=== PATIENT | female | born 1970 | race Caucasian/White ===

== ENCOUNTER 2017-01-08 12:03 | Observation (INO) | payer BC ==
[~2017-01-08] VITALS: Ht 157.5 cm; Wt 79.0 kg
[2017-01-08 12:08] VITALS: BP 121/74; PULSE 87; RESP 14; TEMP 98.1; O2SAT 100
--- NOTE | 2017-01-08 12:23 | PD ---
HPI Chief Complaint: Cardiac Complaint Time Seen by Provider: 12:14 Travel History International Travel<30 days: No Contact w/Intl Traveler<30days: No Traveled to known affect area: No History of Present Illness HPI The patient was seen and examined in the presence of the nurse. This patient complains of chest pain. 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 She developed a sternal pressure. Feels like a squeezing. Feels better at this time. No obvious alleviating factors. She did take an aspirin this morning. Symptoms severity was moderate. Duration 1 hour. No specific injury. Patient reports that she had a heart catheterization about 4 years ago at a different city but she doesn't know the results or when exactly it was done. PFSH Past Medical History Anxiety: Yes Cardiovascular Problems: Yes COPD: Yes Coronary Artery Disease: Yes GERD: Yes ?: Not Past Surgical History Genitourinary Surgery: Yes (GALLBLADDER REMOVED) Social History Alcohol Use: No Tobacco Use: Yes (/2 PPD) Substance Use: No Allergies-Medications (Allergen,Severity, Reaction): Coded Allergies: Penicillin (Verified Allergy, Unknown, 01/08/17) Reported Meds & Prescriptions Reported Meds & Active Scripts Active Reported Simvastatin 20 Mg Tab 20 Mg PO DAILY Nicoderm CQ Patch (Nicotine) 21 Mg/24 Hr Patch 21 Mg T-DERMAL DAILY Pantoprazole (Pantoprazole Sodium) 20 Mg Tab 20 Mg PO DAILY Aspirin 81 Mg Chew 81 Mg CHEW DAILY Lorazepam 0.5 Mg Tab 0.5 Mg PO Q8H PRN Review of Systems General / Constitutional: No: Fever Eyes: No: Visual changes HENT: No: Headaches Cardiovascular: Positive: Chest Pain or Discomfort Respiratory: No: Shortness of Breath Gastrointestinal: No: Abdominal Pain Genitourinary: No: Dysuria Musculoskeletal: No: Pain Skin: No Rash Neurologic: No: Weakness Psychiatric: No: Depression Endocrine: No: Polydipsia Hematologic/Lymphatic: No: Easy Bruising Physical Exam Narrative GENERAL: Well-nourished, well-developed patient in no apparent distress. SKIN: Focused skin assessment reveals no rash and nodules. Skin is Warm and dry. HEAD: Atraumatic. Normocephalic. EYES: Pupils equal and round. No scleral icterus. No injection or drainage. ENT: No nasal bleeding or discharge. Mucous membranes pink and moist. NECK: Trachea midline. No JVD. CARDIOVASCULAR: Regular rate and rhythm. No murmur appreciated. RESPIRATORY: No accessory muscle use. Clear to auscultation. Breath sounds equal bilaterally. GASTROINTESTINAL: Abdomen soft, non-tender, nondistended. Hepatic and splenic margins not palpable. MUSCULOSKELETAL: No obvious deformities. No clubbing. No cyanosis. No edema. NEUROLOGICAL: Awake and alert. No obvious cranial nerve deficits. Motor grossly within normal limits. Normal speech. PSYCHIATRIC: Appropriate mood and affect; insight and judgment normal. Data Data Last Documented VS Vital Signs Date Time Temp Pulse Resp B/P Pulse Ox O2 Delivery O2 Flow Rate FiO2 01/08/17 12:24 95 Room Air 01/08/17 12:08 98.1 87 14 121/74 Orders Electrocardiogram (01/08/17 ) Electrocardiogram (01/08/17 12:20) Basic Metabolic Panel (Bmp) (01/08/17 12:20) Ckmb (Isoenzyme) Profile (01/08/17 12:20) Complete Blood Count With Diff (01/08/17 12:20) Prothrombin Time / Inr (Pt) (01/08/17 12:20) Act Partial Throm Time (Ptt) (01/08/17 12:20) Troponin I (01/08/17 12:20) Chest, Single Ap (01/08/17 12:20) Ecg Monitoring (01/08/17 12:20) Iv Access Insert/Monitor (01/08/17 12:20) Oximetry (01/08/17 12:20) Sodium Chloride 0.9% Flush (Ns Flush) (01/08/17 12:30) Labs Laboratory Tests Test 01/08/17 12:25 White Blood Count 12.9 TH/MM3 Red Blood Count 4.76 MIL/MM3 Hemoglobin 14.6 GM/DL Hematocrit 42.6 % Mean Corpuscular Volume 89.5 FL Mean Corpuscular Hemoglobin 30.7 PG Mean Corpuscular Hemoglobin 34.3 % Concent Red Cell Distribution Width 14.8 % Platelet Count 258 TH/MM3 Mean Platelet Volume 8.3 FL Neutrophils (%) (Auto) 72.9 % Lymphocytes (%) (Auto) 18.9 % Monocytes (%) (Auto) 7.1 % Eosinophils (%) (Auto) 0.5 % Basophils (%) (Auto) 0.6 % Neutrophils # (Auto) 9.4 TH/MM3 Lymphocytes # (Auto) 2.4 TH/MM3 Monocytes # (Auto) 0.9 TH/MM3 Eosinophils # (Auto) 0.1 TH/MM3 Basophils # (Auto) 0.1 TH/MM3 CBC Comment DIFF FINAL Differential Comment Prothrombin Time 10.7 SEC Prothromb Time International 1.0 RATIO Ratio Activated Partial 25.4 SEC Thromboplast Time Sodium Level 135 MEQ/L Potassium Level 3.7 MEQ/L Chloride Level 102 MEQ/L Carbon Dioxide Level 24.2 MEQ/L Anion Gap 9 MEQ/L Blood Urea Nitrogen 26 MG/DL Creatinine 1.24 MG/DL Estimat Glomerular Filtration 46 ML/MIN Rate Random Glucose 104 MG/DL Calcium Level 9.4 MG/DL Total Creatine Kinase 52 U/L Troponin I LESS THAN 0.02 NG/ML MDM Medical Decision Making Medical Screen Exam Complete: Yes Emergency Medical Condition: Yes Medical Record Reviewed: Yes Differential Diagnosis Differential diagnosis includes CO, angina, pericarditis, pleurisy, GERD, anxiety. Narrative Course I have reviewed the patient's electronic medical record. IV placed I reviewed the EKG which shows sinus rhythm and no ST elevation I reviewed the chest x-ray which is normal Extended cardiac monitoring shows sinus rhythm without ectopy CBC normal Metabolic profile normal CK normal Troponin normal Coagulation studies are normal She had an aspirin this morning Emergency room workup is negative. Patient does have cardiac risk factors. She has a vague history of a workup years ago but nothing recent. She will be a 23 hour observation in the chest pain center in order to rule out cardiac cause of her symptoms. Diagnosis Primary Impression: Chest pain in adult Admitting Information Admitting Physician Requests: Observation Navdeep Clay MD Jan 08, 2017 12:23
[2017-01-08 12:24] VITALS: O2SAT 95
[2017-01-08] MEDS ORDERED: NICO21DI6 T-DERMAL (12:29)
[2017-01-08] MEDS ORDERED: ASPI81CH CHEW (12:29)
[2017-01-08] MEDS ORDERED: SIMV20TA PO (12:29)
[2017-01-08] MEDS ORDERED: LORA-373 PO (12:29)
[2017-01-08] MEDS ORDERED: PANT20TA2 PO (12:29)
[2017-01-08] MEDS ORDERED: SODIUM CHLORIDE 0.9% FLUSH 10 ML FLUSH IVF PRN (12:30)
[2017-01-08 12:35] LABS: AUTOMATED NEUTROPHIL # 9.4 TH/MM3 (1.8-7.7); BASOPHIL # 0.1 TH/MM3 (0-0.2); BASOPHIL % 0.6 % (0.0-2.0); EOSINOPHIL # 0.1 TH/MM3 (0-0.4); EOSINOPHIL % 0.5 % (0.0-4.0); HEMATOCRIT 42.6 % (35.0-46.0); HEMO FLAGS DIFF FINAL; LYMPH % 18.9 % (9.0-44.0); LYMPHOCYTE # 2.4 TH/MM3 (1.0-4.8); MEAN CELL VOLUME 89.5 FL (80.0-100.0); MEAN CORPUSCULAR HEMOGLOBIN 30.7 PG (27.0-34.0); MEAN CORPUSCULAR HGB CONC 34.3 % (32.0-36.0); MONO % 7.1 % (0.0-8.0); NEUT % 72.9 % (16.0-70.0); PLATELET COUNT 258 TH/MM3 (150-450); RED BLOOD COUNT 4.76 MIL/MM3 (4.00-5.30); RED CELL DISTRIBUTION WIDTH 14.8 % (11.6-17.2); WHITE BLOOD COUNT 12.9 TH/MM3 (4.0-11.0)
[2017-01-08 12:43] LABS: APTT (PATIENT) 25.4 SEC (24.3-30.1); PROTHROMBIN TIME - PATIENT 10.7 SEC (9.8-11.6)
--- NOTE | 2017-01-08 12:47 | RADRPT ---
EXAM DATE/TIME: 01/08/2017 12:35 [facility] COMPARISON: No previous studies available for comparison. INDICATIONS : Chest pain for 2 hours with cardiac history. MEDICAL HISTORY : Chronic obstructive pulmonary disease. Cardiovascular disease. Angina. SURGICAL HISTORY : None. ENCOUNTER: Initial ACUITY: 1 day PAIN SCORE: 8/10 LOCATION: Bilateral upper chest FINDINGS: A single view of the chest demonstrates the lungs to be symmetrically aerated without evidence of mas s, infiltrate or effusion. The cardiomediastinal contours are unremarkable. Osseous structures are intact. CONCLUSION: No acute disease. Joe Tran MD on January 08, 2017 at 12:45 Board Certified Radiologist. This report was verified electronically.
[2017-01-08 12:54] LABS: ANION GAP 9 MEQ/L (5-15); BICARBONATE 24.2 MEQ/L (21.0-32.0); BLOOD UREA NITROGEN 26 MG/DL (7-18); CHLORIDE 102 MEQ/L (98-107); GLOMERULAR FILTRATION RATE 46 ML/MIN (>89); POTASSIUM 3.7 MEQ/L (3.5-5.1); SODIUM (NA) 135 MEQ/L (136-145)
[2017-01-08 13:01] LABS: CREATINE KINASE 52 U/L (26-192)
[2017-01-08] MEDS ORDERED: SODIUM CHLORIDE 0.9% FLUSH 5 ML FLUSH IVF PRN (15:00)
[2017-01-08] MEDS ORDERED: ACETAMINOPHEN/HYDROcodone 325 MG/7.5 MG TAB PO PRN (15:00)
[2017-01-08] MEDS ORDERED: ONDANSETRON HCL 4 MG/2 ML VIAL IV PRN (15:00)
[2017-01-08] MEDS ORDERED: ACETAMINOPHEN 500 MG CPLT PO PRN (15:00)
--- NOTE | 2017-01-08 16:23 | HHI.HP ---
HPI Primary Care Physician No Primary Care Physician Chief Complaint Chest pain History of Present Illness This is a 46-year-old female that presents to ED via ambulance with a complaint of discomfort in her chest that began at 10:00 this morning. 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 She states she was dizzy, felt nauseous and had an episode of nonbloody emesis, was short of breath and then developed a squeezing in the center chest. It is still there. It is been there for 6 hours. Sublingual helped a little. More intense discomfort lasted 40 minutes but there is still a lower level of residual discomfort. She was also short of breath and felt as if she broke out into a cold sweat. At first patient denies history of CAD and states that she had a normal cardiac catheterization 4 years ago after having an abnormal stress test however upon further discussion she states that she has had history of angina and coronary artery disease when being evaluated by Dr. Dewey of cardiology in the chest pain center. We are attempting to get the records of her stress test and cardiac catheterization. States she has history of hyperlipidemia tobacco abuse. There is family history of CAD. Review of Systems General: Patient denies fevers, chills recent, and recent travel HEENT: Patient denies headache, sore throat, difficulty swallowing. Cardiovascular: Has the chest discomfort as mentioned above. Denies sensation of heart beating rapidly or irregularly. No syncope. She fell diaphoretic. Respiratory: She was short of breath. Denies inspirational chest discomfort. Denies coughing wheezing or hemoptysis. GI: She was nauseous and had one episode of nonbloody emesis. Patient denies diarrhea, abdominal pain, bloody stools. Musculoskeletal: Patient denies joint pain or edema. Denies calf pain or edema. Neurovascular: Patient denies numbness, tingling, weakness in extremities. Denies headache. Endocrine: Denies polyuria and polydipsia. Hematologic: Denies easy bruising. Skin: Denies rash or itching. Past Family Social History Allergies: Coded Allergies: Penicillin (Verified Allergy, Unknown, 01/08/17) Past Medical History Hyperlipidemia, GERD, bipolar disorder, and tobacco abuse. Questionable history of CAD. Awaiting records. Denies hypertension and diabetes. Past Surgical History Cardiac catheterization with intervention. Cholecystectomy. Reported Medications Reported Meds & Active Scripts Active Reported Simvastatin 20 Mg Tab 20 Mg PO DAILY Nicoderm CQ Patch (Nicotine) 21 Mg/24 Hr Patch 21 Mg T-DERMAL DAILY Pantoprazole (Pantoprazole Sodium) 20 Mg Tab 20 Mg PO DAILY Aspirin 81 Mg Chew 81 Mg CHEW DAILY Lorazepam 0.5 Mg Tab 0.5 Mg PO Q8H PRN Active Ordered Medications Current Medications Medications (Trade) Dose Ordered Sig/Ashley Route Start Time Stop Time Status Last Admin (NS Flush) 2 ml UNSCH PRN IVF 01/08/17 15:00 (NS Flush) 2 ml BID IVF 01/08/17 21:00 (Tylenol) 500 mg Q4H PRN PO 01/08/17 15:00 ([place] 7.5-325 Mg) 1 tab Q4H PRN PO 01/08/17 15:00 (Zofran Inj) 4 mg Q6H PRN IV 01/08/17 15:00 (Aspirin) 325 mg DAILY PO 01/09/17 09:00 Family History States her father had an ME in his 50s. Social History Patient has been smoking one half pack cigarettes daily for last 2 months but prior that she smoked one pack of cigarettes daily for 34 years. Denies alcohol. Has occasional marijuana. She works in [employer]. Physical Exam Vital Signs Vital Signs Date Time Temp Pulse Resp B/P Pulse Ox O2 Delivery O2 Flow Rate FiO2 01/08/17 12:24 95 Room Air 01/08/17 12:08 98.1 87 14 121/74 100 Physical Exam GENERAL: This is a well-nourished, well-developed patient, in no apparent distress. Patient speaks in clear complete sentences. Patient is pleasant. HEENT: Head is atraumatic and normocephalic. Neck is supple without lymphadenopathy and trachea is midline. No JVD or carotid bruits. CARDIOVASCULAR: Regular rate and rhythm without murmurs, gallops, or rubs. RESPIRATORY: Clear to auscultation. Breath sounds equal bilaterally. No wheezes , rales, or rhonchi. Chest wall is tender. No use of accessory muscles. GASTROINTESTINAL: Abdomen is nontender, nondistended. Abdomen soft. No obvious pulsatile mass or bruit. No CVA tenderness. Strong femoral pulses bilaterally. Normal bowel sounds in all quadrants. MUSCULOSKELETAL: Patient is moving upper and lower extremities freely. No calf tenderness or edema, no Homans sign. Strong pulses in upper and lower extremities. NEUROLOGICAL: Patient is alert and oriented. Cranial nerves 2-12 are grossly intact. No focal deficits and speech is clear. SKIN: No rash and turgor is normal. Laboratory Laboratory Tests Test 01/08/17 12:25 White Blood Count 12.9 Red Blood Count 4.76 Hemoglobin 14.6 Hematocrit 42.6 Mean Corpuscular Volume 89.5 Mean Corpuscular Hemoglobin 30.7 Mean Corpuscular Hemoglobin 34.3 Concent Red Cell Distribution Width 14.8 Platelet Count 258 Mean Platelet Volume 8.3 Neutrophils (%) (Auto) 72.9 Lymphocytes (%) (Auto) 18.9 Monocytes (%) (Auto) 7.1 Eosinophils (%) (Auto) 0.5 Basophils (%) (Auto) 0.6 Neutrophils # (Auto) 9.4 Lymphocytes # (Auto) 2.4 Monocytes # (Auto) 0.9 Eosinophils # (Auto) 0.1 Basophils # (Auto) 0.1 CBC Comment DIFF FINAL Differential Comment Prothrombin Time 10.7 Prothromb Time International 1.0 Ratio Activated Partial 25.4 Thromboplast Time Sodium Level 135 Potassium Level 3.7 Chloride Level 102 Carbon Dioxide Level 24.2 Anion Gap 9 Blood Urea Nitrogen 26 Creatinine 1.24 Estimat Glomerular Filtration 46 Rate Random Glucose 104 Calcium Level 9.4 Total Creatine Kinase 52 Troponin I LESS THAN 0.02 Result Diagram: 01/08/17 1225 01/08/17 1225 Imaging Last 48 hours Impressions Chest X-Ray 01/08/17 1220 Signed Impressions: Service Date/Time: Sunday, January 08, 2017 12:35 - CONCLUSION: No acute disease. Joe Trna MD Course EKGs have sinus rhythm without significant ST segment depressions or elevations. Assessment and Plan Assessment and Plan * Atypical chest pain: Patient has been seen by Dr. Singh Dewey of cardiology in the chest pain center. She will undergo a Lexiscan and be discharged nonischemic. * Hyperlipidemia: Continue current medication. * GERD: Patient was given GI cocktail. She should use PPI. * Tobacco abuse: Patient has been counseled on importance of smoking cessation. Patient is stable at this time. She is agreeable to this plan. Fausto Canas Jan 08, 2017 16:23
[2017-01-08] MEDS ORDERED: LORazepam 0.5 MG TAB PO PRN (16:30)
[2017-01-08] MEDS ORDERED: REGADENOSON INJ 0.4 MG/5 ML SYR ONE (16:40)
--- NOTE | 2017-01-08 17:11 | HHI.DCPOC ---
Discharge Care Plan Diagnosis: (1) Chest pain (2) Hyperlipidemia (3) Tobacco abuse Goals to Promote Your Health * To prevent worsening of your condition and complications * To maintain your health at the optimal level Directions to Meet Your Goals Take your medications as prescribed Follow your dietary instruction Follow activity as directed Keep your appointments as scheduled Take your immunizations and boosters as scheduled If your symptoms worsen call your PCP, if no PCP go to Urgent Care Center or Emergency Room Smoking is Dangerous to Your Health. Avoid second hand smoke Call the 24-hour hour crisis hotline for domestic abuse at Fausto Canas Jan 08, 2017 17:11
--- NOTE | 2017-01-08 17:40 | RADRPT ---
EXAM DATE/TIME: 01/08/2017 15:46 [facility] COMPARISON: No previous studies available for comparison. INDICATIONS : Substernal chest pain. Angina. DOSE: 25.8 mCi Tc99m Myoview at stress. 8.6 mCi Tc99m Myoview at rest. 0.4 mg Lexiscan STRESS SYMPTOMS: Short of breath and headache. EJECTION FRACTION: 64% MEDICAL HISTORY : Chronic obstructive pulmonary disease. Gastroesophageal reflux disease. SURGICAL HISTORY : Cholecystectomy. ENCOUNTER: Initial ACUITY: 1 day PAIN SCALE: 6/10 LOCATION: Substernal chest TECHNIQUE: The patient underwent pharmacologic stress with infusion of prescribed dose. Continuous ECG tracing was monitored during stress. Gated SPECT imaging was performed after stress and conventional SPECT i maging was performed at rest. The examination was performed on a SPECT/CT scanner, both attenuation and non-corrected datasets were reviewed. FINDINGS: DISTRIBUTION: The maximum perfused segment at stress is in the anterior wall. PERFUSION STUDY: Mildly diminished relative perfusion at the apex may be myocardial thinning. Perfusion is elsewhere h omogeneous and intact. Nothing to suggest redistribution GATED STUDY: There is intact wall motion and thickening without hypokinetic or dyskinetic segments. CONCLUSION: Probably normal examination. RISK CATEGORY: Low (<1% Annual Mortality Rate) Joe Tran MD on January 08, 2017 at 17:35 Board Certified Radiologist. This report was verified electronically.
[2017-01-08 18:19] VITALS: BP 118/68; PULSE 62; RESP 18; TEMP 98.5; O2SAT 94
[2017-01-08] MEDS ORDERED: SODIUM CHLORIDE 0.9% FLUSH 5 ML FLUSH IVF SCH (21:00)
[2017-01-09] MEDS ORDERED: PRAVASTATIN SOD 40 MG TAB PO SCH (09:00)
[2017-01-09] MEDS ORDERED: NON-FORMULARY DRUG (Simvastatin 20 MG) PO SCH (09:00)
[2017-01-09] MEDS ORDERED: ASPIRIN 325 MG TAB PO SCH (09:00)
[2017-01-09] MEDS ORDERED: PANTOPRAZOLE SOD 20 MG DELAYED RELEASE TAB PO SCH (09:00)
--- NOTE | 2017-01-09 11:13 | EKG ---
Date Performed: 01/08/2017 Time Performed: 15:17:31 PTAGE: 46 years EKG: Sinus rhythm NORMAL ECG NO PREVIOUS TRACING DOCTOR: Salvador Meza Interpretating Date/Time 01/09/2017 11:12:11
--- NOTE | 2017-01-09 13:29 | TR ---
Date Performed: 01/08/2017 Time Performed: 16:30:01 DOCTOR: Arya Stone DRUG LIST: CLINICAL HISTORY: REASON FOR TEST: Angina REASON FOR ENDING: OBSERVATION: CONCLUSION: Lexiscan stress test was performed under standard four minute protocol. Radionuclid e was injected one minute prior to ending the test. No electrocardiographic abormalities were present to suggest ischemia. Nuclear imaging and interpretation are pending. COMMENTS:
== END 2017-01-08 19:05 | disposition home or self-care (01) ==
LOC: NEPE 12:03 → NEDH 14:16 → NEPGCP 17:47
PROVIDERS: ADMIT Internal Medicine Cardiovascular Disease; ATTEND Internal Medicine Cardiovascular Disease
DX: R07.89 Other chest pain (principal); I25.10 Atherosclerotic heart disease of native coronary artery without angina pectoris; R06.02 Shortness of breath; E78.5 Hyperlipidemia, unspecified; F17.210 Nicotine dependence, cigarettes, uncomplicated; Z71.6 Tobacco abuse counseling; K21.9 Gastro-esophageal reflux disease without esophagitis; F41.9 Anxiety disorder, unspecified; J44.9 Chronic obstructive pulmonary disease, unspecified; F31.9 Bipolar disorder, unspecified; F12.90 Cannabis use, unspecified, uncomplicated; Z79.82 Long term (current) use of aspirin; Z79.899 Other long term (current) drug therapy; Z82.49 Family history of ischemic heart disease and other diseases of the circulatory system
CPT/HCPCS: 71010; 78452; 80048; 82550; 84484; 85025; 85610; 85730; 93005; 93017; 99285; A9502; G0378; J2785

== ENCOUNTER 2017-01-19 12:10 | Observation (INO) | payer BC ==
[~2017-01-19 12:10] MED LIST: ASPI81CH CHEW; LORA-373 PO; PANT20TA2 PO; SIMV20TA PO
[2017-01-19] MEDS ORDERED: ASPIRIN 81 MG CHEW TAB PO ONE (13:00)
[2017-01-19] MEDS ORDERED: MORPHINE SULFATE 4 MG/ML INJ IV ONE (13:00)
[2017-01-19] MEDS ORDERED: ASPIRIN 81 MG CHEW TAB ONE (13:09)
[2017-01-19] MEDS ORDERED: MORPHINE SULFATE 4 MG/ML INJ ONE (13:10)
[2017-01-19 13:27] LABS: AUTOMATED NEUTROPHIL # 7.7 TH/MM3 (1.8-7.7); BASOPHIL # 0.1 TH/MM3 (0-0.2); BASOPHIL % 0.9 % (0.0-2.0); EOSINOPHIL # 0.2 TH/MM3 (0-0.4); EOSINOPHIL % 1.4 % (0.0-4.0); HEMATOCRIT 45.2 % (35.0-46.0); HEMO FLAGS DIFF FINAL; LYMPH % 23.7 % (9.0-44.0); LYMPHOCYTE # 2.7 TH/MM3 (1.0-4.8); MEAN CELL VOLUME 91.1 FL (80.0-100.0); MONO % 6.6 % (0.0-8.0); NEUT % 67.4 % (16.0-70.0); PLATELET COUNT 296 TH/MM3 (150-450); RED BLOOD COUNT 4.96 MIL/MM3 (4.00-5.30); RED CELL DISTRIBUTION WIDTH 15.1 % (11.6-17.2); WHITE BLOOD COUNT 11.4 TH/MM3 (4.0-11.0)
[2017-01-19 13:48] LABS: ALT (GPT) 116 U/L (10-53); ANION GAP 8 MEQ/L (5-15); APTT (PATIENT) 25.2 SEC (24.3-30.1); AST (GOT) 56 U/L (15-37); BICARBONATE 22.5 MEQ/L (21.0-32.0); BLOOD UREA NITROGEN 11 MG/DL (7-18); CHLORIDE 103 MEQ/L (98-107); GLOMERULAR FILTRATION RATE 62 ML/MIN (>89); INTERNATIONAL NORMALIZED RATIO 0.9 RATIO; PROTHROMBIN TIME - PATIENT 10.2 SEC (9.8-11.6); SODIUM (NA) 133 MEQ/L (136-145)
[2017-01-19 13:51] LABS: ALKALINE PHOSPHATASE 147 U/L (45-117); TOTAL BILIRUBIN ADULT 0.9 MG/DL (0.2-1.0)
--- NOTE | 2017-01-19 14:21 | RADRPT ---
EXAM DATE/TIME: 01/19/2017 13:37 [facility] COMPARISON: CHEST SINGLE AP, January 08, 2017, 12:35. INDICATIONS : Chest pain. MEDICAL HISTORY : Chronic obstructive pulmonary disease. Gastroesophageal reflux disease SURGICAL HISTORY : Cholecystectomy. ENCOUNTER: Initial ACUITY: 1 day PAIN SCORE: 6/10 LOCATION: Bilateral upper chest FINDINGS: PA and lateral views of the chest demonstrate a minimal left basilar atelectasis. Heart normal in siz e. Osseous structures are intact. CONCLUSION: Left basilar atelectasis. Yo Ratliff MD on January 19, 2017 at 14:19 Board Certified Radiologist. This report was verified electronically.
--- NOTE | 2017-01-19 15:41 | PD ---
HPI Chief Complaint: Chest Pain Time Seen by Provider: 13:03 Travel History International Travel<30 days: No Contact w/Intl Traveler<30days: No Traveled to known affect area: No History of Present Illness HPI Patient is a 46-year-old female who comes in complaining of chest pain. She says she was doing yard work when the pain started in the middle of her chest. She says it has been going on for about an hour. She says that usually the pain is relieved with rest, but today it has not gone away. She says she had an episode of vomiting, and some shortness of breath. She denies fever or chills. She says she was feeling well prior to this. She did have a stress test performed on January 08 that showed no acute abnormalities. [facility] Past Medical History Anxiety: Yes Cardiac Catheterization: Yes (3 YEARS AGO, NO STENTS) Cardiovascular Problems: Yes (ANGINA) High Cholesterol: Yes COPD: Yes Coronary Artery Disease: Yes GERD: Yes Past Surgical History Genitourinary Surgery: Yes (GALLBLADDER REMOVED) Social History Alcohol Use: No Tobacco Use: Yes (/2 PPD) Substance Use: No Allergies-Medications (Allergen,Severity, Reaction): Coded Allergies: penicillin G (Unverified Allergy, Unknown, 01/14/17) Reported Meds & Prescriptions Reported Meds & Active Scripts Active Reported Simvastatin 20 Mg Tab 20 Mg PO DAILY Pantoprazole (Pantoprazole Sodium) 20 Mg Tab 20 Mg PO DAILY Aspirin 81 Mg Chew 81 Mg CHEW DAILY Lorazepam 0.5 Mg Tab 0.5 Mg PO Q8H PRN Review of Systems Except as stated in HPI: all other systems reviewed are Neg General / Constitutional: No: Fever, Chills HENT: No: Headaches, Lightheadedness Cardiovascular: Positive: Chest Pain or Discomfort Respiratory: Positive: Shortness of Breath Gastrointestinal: Positive: Nausea, Vomiting Musculoskeletal: No: Myalgias, Edema Skin: No Rash, No Change in Pigmentation Neurologic: No: Weakness, Dizziness Physical Exam Narrative GENERAL: Awake and alert, in no acute distress. SKIN: Focused skin assessment warm/dry. HEAD: Atraumatic. Normocephalic. EYES: Pupils equal and round. No scleral icterus. ENT: Mucous membranes pink and moist. NECK: Trachea midline. No JVD. CARDIOVASCULAR: Regular rate and rhythm. No murmur appreciated. RESPIRATORY: No accessory muscle use. Clear to auscultation. Breath sounds equal bilaterally. GASTROINTESTINAL: Abdomen soft, non-tender, nondistended. MUSCULOSKELETAL: No obvious deformities. No clubbing. No cyanosis. No edema. NEUROLOGICAL: Awake and alert. No obvious cranial nerve deficits. Motor grossly within normal limits. Normal speech. PSYCHIATRIC: Appropriate mood and affect; insight and judgment normal. Data Data Orders Orders Complete Blood Count With Diff (01/19/17 13:03) Comprehensive Metabolic Panel (01/19/17 13:03) Troponin I (01/19/17 13:03) Act Partial Throm Time (Ptt) (01/19/17 13:03) Prothrombin Time / Inr (Pt) (01/19/17 13:03) Chest, Pa & Lat (01/19/17 ) Aspirin Chew (Aspirin Chew) (01/19/17 13:09) Morphine Inj (Morphine Inj) (01/19/17 13:10) Aspirin Chew (Aspirin Chew) (01/20/17 09:00) Lorazepam (Ativan) (01/19/17 17:00) Pantoprazole (Protonix) (01/20/17 09:00) Pravastatin (Pravachol) (01/20/17 09:00) Place In Observation (01/19/17 ) Code Status (01/19/17 16:24) Vital Signs (Adult) Q4H (01/19/17 16:24) Activity Bed Rest (01/19/17 16:24) Lubricating Engineer / Telemetry .CONTINUOUS (01/19/17 16:24) Intake + Output AARON.QSHIFT (01/19/17 16:24) Notify Dr: Other (01/19/17 16:24) Diet Heart Healthy (01/19/17 Dinner) Sodium Chlor 0.9% 1000 Ml Inj (Ns 1000 M (01/19/17 16:24) Sodium Chloride 0.9% Flush (Ns Flush) (01/19/17 16:30) Sodium Chloride 0.9% Flush (Ns Flush) (01/19/17 21:00) Acetaminophen (Tylenol) (01/19/17 20:00) Ondansetron Inj (Zofran Inj) (01/19/17 17:00) Basic Metabolic Panel (Bmp) (01/20/17 06:00) Complete Blood Count With Diff (01/20/17 06:00) Creatine Kinase (Cpk) (01/19/17 16:24) Creatine Kinase (Cpk) (01/19/17 22:24) Troponin I (01/19/17 16:24) Troponin I (01/19/17 22:24) Urinalysis - C+S If Indicated (01/19/17 16:24) Enoxaparin Inj (Lovenox Inj) (01/19/17 18:00) Naloxone Inj (Narcan Inj) (01/19/17 16:30) Docusate Sodium-Senna (Nay-Colace) (01/19/17 21:00) Magnesium Hydroxide Liq (Milk Of Magnesi (01/19/17 21:00) Sennosides (Senokot) (01/19/17 21:00) Bisacodyl Supp (Dulcolax Supp) (01/19/17 16:30) Lactulose Liq (Lactulose Liq) (01/19/17 16:30) Consult Cardiology (01/19/17 ) Admit Order (Ed Use Only) (01/19/17 ) Labs Laboratory Tests Test 01/19/17 12:35 White Blood Count 11.4 TH/MM3 Red Blood Count 4.96 MIL/MM3 Hemoglobin 14.9 GM/DL Hematocrit 45.2 % Mean Corpuscular Volume 91.1 FL Mean Corpuscular Hemoglobin 30.0 PG Mean Corpuscular Hemoglobin Concent 33.0 % Red Cell Distribution Width 15.1 % Platelet Count 296 TH/MM3 Mean Platelet Volume 8.8 FL Neutrophils (%) (Auto) 67.4 % Lymphocytes (%) (Auto) 23.7 % Monocytes (%) (Auto) 6.6 % Eosinophils (%) (Auto) 1.4 % Basophils (%) (Auto) 0.9 % Neutrophils # (Auto) 7.7 TH/MM3 Lymphocytes # (Auto) 2.7 TH/MM3 Monocytes # (Auto) 0.8 TH/MM3 Eosinophils # (Auto) 0.2 TH/MM3 Basophils # (Auto) 0.1 TH/MM3 CBC Comment DIFF FINAL Differential Comment Prothrombin Time 10.2 SEC Prothromb Time International Ratio 0.9 RATIO Activated Partial Thromboplast Time 25.2 SEC Blood Urea Nitrogen 11 MG/DL Creatinine 0.96 MG/DL Random Glucose 136 MG/DL Total Protein 7.5 GM/DL Albumin 3.6 GM/DL Calcium Level 8.8 MG/DL Alkaline Phosphatase 147 U/L Aspartate Amino Transf (AST/SGOT) 56 U/L Alanine Aminotransferase (ALT/SGPT) 116 U/L Total Bilirubin 0.9 MG/DL Sodium Level 133 MEQ/L Potassium Level 4.0 MEQ/L Chloride Level 103 MEQ/L Carbon Dioxide Level 22.5 MEQ/L Anion Gap 8 MEQ/L Estimat Glomerular Filtration Rate 62 ML/MIN Troponin I LESS THAN 0.02 NG/ML Lipase 120 U/L MDM Medical Decision Making Medical Screen Exam Complete: Yes Emergency Medical Condition: Yes Medical Record Reviewed: Yes Interpretation(s) ECG shows normal sinus rhythm at 90, no ST elevation or depression, left axis deviation. Differential Diagnosis ACS versus NSTEMI versus STEMI Narrative Course patient is a 46-year-old female comes in complaining of chest pain. Exam shows no acute abdomen on his. IV established, labs sent. Patient connected to the optic fibre drawer. Labs show an elevation in her liver function tests. Patient was given aspirin and a small dose of morphine. I spoke with Dr. Priest who suggests trending her cardiac enzymes and if necessary, performing a CT of the coronary arteries. will be placed in observation for further management. Diagnosis Primary Impression: Chest pain Qualified Codes: R07.9 - Chest pain, unspecified Admitting Information Admitting Physician Requests: Observation Condition: Stable Sera Cain MD Jan 19, 2017 15:41
[2017-01-19] MEDS ORDERED: SODIUM CHLORIDE 0.9% FLUSH 10 ML FLUSH IV FLUSH PRN (16:30)
[2017-01-19] MEDS ORDERED: NALOXONE HCL 0.4 MG/ML AMP IV PRN (16:30)
[2017-01-19] MEDS ORDERED: BISACODYL 10 MG SUPP RECTAL PRN (16:30)
[2017-01-19] MEDS ORDERED: LACTULOSE SYRUP 20 GM/30 ML CUP PO PRN (16:30)
[2017-01-19 16:45] VITALS: BP 119/54; PULSE 78; RESP 18; O2SAT 99
[2017-01-19] MEDS ORDERED: ONDANSETRON HCL 4 MG/2 ML VIAL IVP PRN (17:00)
--- NOTE | 2017-01-19 17:33 | RADRPT ---
EXAM DATE/TIME: 01/19/2017 16:50 [place] COMPARISON: No previous studies available for comparison. INDICATIONS : Increased lab values. MEDICAL HISTORY : Hypercholesterolemia. Hypertension. Gastroesophageal reflux disease. Angina. Coronary artery disease. COPD. Anxiety. SURGICAL HISTORY : Cholecystectomy. Cardiac catheterization. ENCOUNTER: Initial ACUITY: 1 day PAIN SCORE: 10/10 LOCATION: Bilateral upper quadrant MEASUREMENTS: LIVER: 13.4 cm length COMMON DUCT: 4 mm RIGHT KIDNEY: 11.1 x 4.6 x 4.7 cm cm SPLEEN: 9.5 cm length FINDINGS: The liver is slightly echogenic which maybe due to fatty infiltration and or hepatocellular dysfuncti on. There is an approximate 2.1 cm simple cyst right hepatic lobe. There is evidence for prior cholec ystectomy.The visualized head of the pancreas, and right kidney appear grossly intact for technique. CONCLUSION: Fatty liver and simple cyst right hepatic lobe. Nancy Umaña MD on January 19, 2017 at 17:30 Board Certified Radiologist. This report was verified electronically.
[2017-01-19 17:45] VITALS: BP 98/56; PULSE 76; RESP 22; O2SAT 100
--- NOTE | 2017-01-19 17:53 | HHI.HP ---
HPI Service [facility] Hospitalists Primary Care Physician No Primary Care Physician Admission Diagnosis Chest Pain Diagnoses: (1) Hyperlipidemia Diagnosis: Secondary (2) Tobacco abuse Diagnosis: Secondary (3) Chest pain Diagnosis: Principal Chief Complaint: Chest pain Travel History International Travel<30 Days: No Contact w/Intl Traveler <30 Da: No Traveled to Known Affected Are: No History of Present Illness Ms. Meza is a 46-year-old female patient with a known medical history of anxiety, dyslipidemia, COPD and tobacco history for presented to the ED with complaints of chest pain. 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 She states that this pain today started while working around 1000, is located in her midsternal chest , squeezing in nature, intermittent lasting anywhere between minutes to hours. She does state she experiences this type of pain several times a day. Denies any radiation. States that resting helps ease the pain but pain never completely subsides. Does admit to associated nausea, vomiting, dyspnea and shortness of breath with each episode. Denies any aggravating or relieving factors. Pain reproducible to palpation. Denies any recent trauma to chest or pulling any muscles. Patient does admit to a [id number] smoking history and has recently quit 1 month ago. Patient states earlier this month she was admitted to the chest pain center here at [place] and performed a chemical stress test which was unremarkable at the time. Last cardiac catheterization was 4 years ago and at that time, per patient, it was unremarkable. Review of Systems Constitutional: DENIES: Fever, Chills, Change in appetite Respiratory: COMPLAINS OF: Shortness of breath Cardiovascular: COMPLAINS OF: Chest pain Gastrointestinal: COMPLAINS OF: Nausea, Vomiting, DENIES: Constipation, Diarrhea Genitourinary: DENIES: Dysmenorrhea Psychiatric: COMPLAINS OF: Anxiety Except as stated in HPI: all other systems reviewed are Neg Past Family Social History Past Medical History Dyslipidemia COPD Tobacco history Past Surgical History Cholecystectomy Hernia repair Reported Medications Reported Meds & Active Scripts Active Reported Simvastatin 20 Mg Tab 20 Mg PO DAILY Pantoprazole (Pantoprazole Sodium) 20 Mg Tab 20 Mg PO DAILY Aspirin 81 Mg Chew 81 Mg CHEW DAILY Lorazepam 0.5 Mg Tab 0.5 Mg PO Q8H PRN Allergies: Coded Allergies: penicillin G (Unverified Allergy, Unknown, 01/14/17) Active Ordered Medications Current Medications Medications (Trade) Dose Ordered Sig/Ashley Route Start Time Stop Time Status Last Admin (Aspirin Chew) 81 mg DAILY CHEW 01/20/17 09:00 (Ativan) 0.5 mg Q8HR PRN PO 01/19/17 17:00 (Protonix) 20 mg DAILY PO 01/20/17 09:00 (Pravachol) 40 mg DAILY PO 01/20/17 09:00 Sodium Chloride 1,000 ml @ 100 mls/hr Q10H IV 01/19/17 16:24 (NS Flush) 2 ml UNSCH PRN IV FLUSH 01/19/17 16:30 (NS Flush) 2 ml BID IV FLUSH 01/19/17 21:00 (Tylenol) 650 mg Q4HR PRN PO 01/19/17 20:00 (Zofran Inj) 4 mg Q6H PRN IVP 01/19/17 17:00 (Lovenox Inj) 40 mg Q24H SQ 01/19/17 18:00 (Narcan Inj) 0.4 mg UNSCH PRN IV 01/19/17 16:30 (Nay-Colace) 1 tab BID PO 01/19/17 21:00 (Milk Of Magnesia Liq) 30 ml Q12HR PRN PO 01/19/17 21:00 (Senokot) 17.2 mg Q12HR PRN PO 01/19/17 21:00 (Dulcolax Supp) 10 mg DAILY PRN RECTAL 01/19/17 16:30 (Lactulose Liq) 30 ml DAILY PRN PO 01/19/17 16:30 (Morphine Inj) 1 mg Q4H PRN IV PUSH 01/19/17 16:45 Family History Paternal family medical history significant for multiple WY's, first being in his 40's. Maternal family medical history significant for W[place], also being in her 40's. Social History Patient does admit to a 12-[id number]-[id number] smoking history and recently quit 1 month ago with the use of nicotine patches. Denies any alcohol use. Denies any illicit drug use. Physical Exam Vital Signs Vital Signs Date Time Temp Pulse Resp B/P (MAP) Pulse Ox O2 Delivery O2 Flow Rate FiO2 01/19/17 16:45 78 18 119/54 (75) 99 Room Air Physical Exam GENERAL: Well-nourished, well-developed disheveled female patient, with complaint of current chest pain. SKIN: No rashes, ecchymoses or lesions. Warm and dry. HEAD: Atraumatic. Normocephalic. No temporal or scalp tenderness.Pupils equal round and reactive. Extraocular motions intact. No scleral icterus. No injection or drainage. Nose without bleeding. Airway patent. NECK: Trachea midline. No JVD or lymphadenopathy. Supple. CARDIOVASCULAR: Regular rate and rhythm. No murmur appreciated. S1 and S2 present. RESPIRATORY: Clear to auscultation. Breath sounds equal bilaterally. No wheezes , rales, or rhonchi. GASTROINTESTINAL: Abdomen soft, non-tender, nondistended. No guarding. MUSCULOSKELETAL: Extremities without clubbing, cyanosis, or edema. No joint tenderness, effusion, or edema noted. NEUROLOGICAL: Awake and alert. Cranial nerves II through XII intact. Motor and sensory grossly within normal limits. Five out of 5 muscle strength in all muscle groups. Normal speech. Laboratory Laboratory Tests Test 01/19/17 12:35 White Blood Count 11.4 Red Blood Count 4.96 Hemoglobin 14.9 Hematocrit 45.2 Mean Corpuscular Volume 91.1 Mean Corpuscular Hemoglobin 30.0 Mean Corpuscular Hemoglobin Concent 33.0 Red Cell Distribution Width 15.1 Platelet Count 296 Mean Platelet Volume 8.8 Neutrophils (%) (Auto) 67.4 Lymphocytes (%) (Auto) 23.7 Monocytes (%) (Auto) 6.6 Eosinophils (%) (Auto) 1.4 Basophils (%) (Auto) 0.9 Neutrophils # (Auto) 7.7 Lymphocytes # (Auto) 2.7 Monocytes # (Auto) 0.8 Eosinophils # (Auto) 0.2 Basophils # (Auto) 0.1 CBC Comment DIFF FINAL Differential Comment Prothrombin Time 10.2 Prothromb Time International Ratio 0.9 Activated Partial Thromboplast Time 25.2 Blood Urea Nitrogen 11 Creatinine 0.96 Random Glucose 136 Total Protein 7.5 Albumin 3.6 Calcium Level 8.8 Alkaline Phosphatase 147 Aspartate Amino Transf (AST/SGOT) 56 Alanine Aminotransferase (ALT/SGPT) 116 Total Bilirubin 0.9 Sodium Level 133 Potassium Level 4.0 Chloride Level 103 Carbon Dioxide Level 22.5 Anion Gap 8 Estimat Glomerular Filtration Rate 62 Troponin I LESS THAN 0.02 Result Diagram: 01/19/17 1235 01/19/17 1235 Caprini VTE Risk Assessment Caprini VTE Risk Assessment: No/Low Risk (score <= 1) Caprini Risk Assessment Model Point Value = 1 Point Value = 2 Point Value = 3 Point Value = 5 Age 41-60 Minor surgery BMI > 25 kg/m2 Swollen legs Varicose veins or History of unexplained or recurrent spontaneous Oral contraceptives or hormone replacement Sepsis (< 1 month) Serious lung disease, including pneumonia (< 1 month) Abnormal pulmonary function Acute myocardial infarction Congestive heart failure (< 1 month) History of inflammatory bowel disease Medical patient at bed rest Age 61-74 Arthroscopic surgery Major open surgery (> 45 min) Laparoscopic surgery (> 45 min) Malignancy Confined to bed (> 72 hours) Immobilizing plaster cast Central venous access Age >= 75 History of VTE Family history of VTE Factor V Leiden Prothrombin [id number] Lupus anticoagulant Anticardiolipin antibodies Elevated serum homocysteine Heparin-induced thrombocytopenia Other congenital or acquired thrombophilia Stroke (< 1 month) Elective arthroplasty Hip, pelvis, or leg fracture Acute spinal cord injury (< 1 month) Prophylaxis Regimen Total Risk Factor Score Risk Level Prophylaxis Regimen 0-1 Low Early ambulation 2 Moderate Order ONE of the following: *Sequential Compression Device (SCD) *Heparin 5000 units SQ BID 3-4 Higher Order ONE of the following medications: *Heparin 5000 units SQ TID *Enoxaparin/Lovenox 40 mg SQ daily (WT < 150 kg, CrCl > 30 mL/min) *Enoxaparin/Lovenox 30 mg SQ daily (WT < 150 kg, CrCl > 10-29 mL/min) *Enoxaparin/Lovenox 30 mg SQ BID (WT < 150 kg, CrCl > 30 mL/min) AND/OR *Sequential Compression Device (SCD) 5 or more Highest Order ONE of the following medications: *Heparin 5000 units SQ TID (Preferred with Epidurals) *Enoxaparin/Lovenox 40 mg SQ daily (WT < 150 kg, CrCl > 30 mL/min) *Enoxaparin/Lovenox 30 mg SQ daily (WT < 150 kg, CrCl > 10-29 mL/min) *Enoxaparin/Lovenox 30 mg SQ BID (WT < 150 kg, CrCl > 30 mL/min) AND *Sequential Compression Device (SCD) Assessment and Plan Assessment and Plan Ms. Meza is a 46-year-old female patient with a known medical history of anxiety, dyslipidemia, COPD and tobacco history for presented to the ED with complaints of chest pain. Patient has had similar complaints in the past and just recently was admitted to the chest pain center earlier this month. Does state she has a history of CAD with cardiac catheterization performed 4 years ago in [place] requiring no intervention or stent placement. Does admit to a tobacco history and hyperlipidemia controlled on mediation. VSS. Slight hyponatremia noted. Troponin negative. Elevated liver enzymes. CXR showing atelectasis. Atypical chest pain suspect secondary to musculoskeletal etiology: Troponin negative. 2-D ECHO ordered and pending. Follow. Cardiology consulted, appreciate input. Continue cardiac telemetry. Control pain, Morphine IV PRN per pain scale. Nausea and vomiting: Zofran available PRN. Will hydrate, NS at 100 ml/hr. Encourage PO intake as tolerated. Transaminase: No baseline liver labs found in EMR. US abdomen liver ordered and pending. Hepatitis profile and Lipase ordered. Follow. Patient refuses any alcohol consumption. Chronic obstructive pulmonary disease: CXR reviewed showing left basilar atelectasis. Stable at this time. Dyslipidemia, chronic: Continue home Pravastatin. Anxiety: Continue home Lorazepam. History of tobacco abuse: Continue to encourage cessation. Nicotine patch offered, patient refused. GERD/GI Prophylaxis: Protonix DVT Prophylaxis: SCDs/Lovenox Patient seen in Emergency room discussed with her with PA, with ER physician The exam, history, and the medical decision-making described in the above note were completed with the assistance of the mid-level provider. I reviewed and agree with the findings presented. I attest that I had a [id number] encounter with the patient on the same day, and personally performed and documented my assessment and findings in the medical record. Code Status Full code Discussed Condition With Patient, PA and ER physician Problem Qualifiers (1) Chest pain: Qualified Codes: R07.9 - Chest pain, unspecified Sera Galan Jan 19, 2017 17:53 Jesus Penny MD Jan 19, 2017 17:59
[2017-01-19] MEDS: SODIUM CHLOR 0.9% 1000 ML INJ 1,000 ML IV SCH ×2 (18:12→18:17)
[2017-01-19] MEDS: MORPHINE SULFATE 8 MG/ML INJ IV PUSH PRN (18:13)
[2017-01-19] MEDS: ENOXAPARIN SODIUM 40 MG/0.4 ML SYRINGE SQ SCH (18:16)
[2017-01-19 18:17] VITALS: BP 102/60; PULSE 64; RESP 16; O2SAT 95
[2017-01-19 19:27] VITALS: BP 102/61; PULSE 70; RESP 16; O2SAT 96
[2017-01-19 19:27] LABS: BACTERIA, URINE RARE /hpf; BLOOD, URINE MOD (NEG); COMMENT (UR) CULT NOT INDICATED; CULTURE IF INDICATED CULT NOT INDICATED; GLUCOSE,URINE NEG (NEG); HYALINE CAST, URINE 5 /lpf (RARE); KETONE, URINE NEG (NEG); MUCUS URINE FEW /lpf (OCC); NITRITE,URINE NEG (NEG); SQUAMOUS EPITHELIAL CELL URINE 34 /hpf (0-5); URINE COLOR YELLOW (YELLW/STRAW)
[2017-01-19] MEDS ORDERED: ACETAMINOPHEN 325 MG TAB PO PRN (20:00)
[2017-01-19] MEDS: DOCUSATE SODIUM 50 MG/SENNA 8.6 MG TAB PO SCH (20:14)
[2017-01-19] MEDS: SODIUM CHLORIDE 0.9% FLUSH 10 ML FLUSH IV FLUSH SCH (20:14)
[2017-01-19] MEDS ORDERED: SENNOSIDES 8.6 MG TAB PO PRN (21:00)
[2017-01-19] MEDS ORDERED: MAGNESIUM HYDROXIDE SUSP 30 ML CUP PO PRN (21:00)
--- NOTE | 2017-01-19 21:48 | EKG ---
Date Performed: 01/19/2017 Time Performed: 12:23:00 PTAGE: 46 years EKG: Sinus rhythm POSSIBLE LEFT ATRIAL ENLARGEMENT BORDERLINE LEFT AXIS DEVIATION BORDERLINE ECG NO PREVIOUS TRACING DOCTOR: Bhavin Astudillo Interpretating Date/Time 01/19/2017 21:46:04
[2017-01-19 22:07] LABS: CREATINE KINASE 37 U/L (26-192)
[2017-01-19 23:41] VITALS: PULSE 66
[2017-01-20] VITALS (9 sets, daily range): BP systolic 99–109; BP diastolic 59–71; PULSE 49–63; RESP 16–18; TEMP 97.5–98.4; O2SAT 95–98
[2017-01-20 01:19] LABS: FREE T4 0.98 NG/DL (0.76-1.46); HDL CHOLESTEROL 40.6 MG/DL (40.0-60.0); LDL CHOLESTEROL 132 MG/DL (0-99)
[2017-01-20 01:21] LABS: CREATINE KINASE 41 U/L (26-192)
[2017-01-20 05:31] LABS: AUTOMATED NEUTROPHIL # 4.7 TH/MM3 (1.8-7.7); BASOPHIL % 0.4 % (0.0-2.0); EOSINOPHIL # 0.2 TH/MM3 (0-0.4); EOSINOPHIL % 2.4 % (0.0-4.0); HEMATOCRIT 40.9 % (35.0-46.0); HEMO FLAGS DIFF FINAL; LYMPH % 33.6 % (9.0-44.0); LYMPHOCYTE # 2.9 TH/MM3 (1.0-4.8); MEAN CELL VOLUME 91.5 FL (80.0-100.0); MEAN CORPUSCULAR HEMOGLOBIN 29.6 PG (27.0-34.0); MEAN CORPUSCULAR HGB CONC 32.4 % (32.0-36.0); MONO % 8.3 % (0.0-8.0); NEUT % 55.3 % (16.0-70.0); PLATELET COUNT 262 TH/MM3 (150-450); RED BLOOD COUNT 4.47 MIL/MM3 (4.00-5.30); RED CELL DISTRIBUTION WIDTH 15.2 % (11.6-17.2); WHITE BLOOD COUNT 8.5 TH/MM3 (4.0-11.0)
[2017-01-20] MEDS: MORPHINE SULFATE 8 MG/ML INJ IV PUSH PRN (05:57)
[2017-01-20 05:59] LABS: BICARBONATE 25.3 MEQ/L (21.0-32.0)
[2017-01-20] MEDS: DOCUSATE SODIUM 50 MG/SENNA 8.6 MG TAB PO SCH ×2 (08:57→21:00)
[2017-01-20] MEDS: SODIUM CHLORIDE 0.9% FLUSH 10 ML FLUSH IV FLUSH SCH ×2 (08:59→20:53)
[2017-01-20] MEDS: PRAVASTATIN SOD 40 MG TAB PO SCH (08:59)
[2017-01-20] MEDS: ASPIRIN 81 MG CHEW TAB CHEW SCH (08:59)
[2017-01-20] MEDS: PANTOPRAZOLE SOD 20 MG DELAYED RELEASE TAB PO SCH (08:59)
[2017-01-20] MEDS ORDERED: ASPIRIN 81 MG CHEW TAB CHEW SCH (09:00)
[2017-01-20] MEDS: LORazepam 0.5 MG TAB PO PRN ×2 (09:27→22:32)
--- NOTE | 2017-01-20 09:28 | MB ---
cc: OPAL KRAUS DATE OF CONSULTATION: 01/20/2017 DATE OF : 1970 REASON FOR CONSULTATION Chest pain. HISTORY OF PRESENT ILLNESS 46-year-old female with cardiac risk factors that include hyperlipidemia, current smoker, family history of coronary artery disease, who presented to the emergency department complaining of chest pain. 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 She denies any radiation. She denies nausea, vomiting, diarrhea, fevers, chills, shortness of breath, palpitations, syncope, PND, leg edema or recent chest trauma. She was recently in the emergency department at [facility] for the same complaints. At that time she was admitted to the chest pain center. She was ruled out by cardiac markers. Lexiscan stress test was unremarkable as well as other cardiac ischemic work-up for which she was discharged home. She also had a cardiac catheterization about four years ago which she reports was unremarkable. Cardiology has been consulted for further management and evaluation. REVIEW OF SYSTEMS Negative except for what is mentioned in the HPI. PAST MEDICAL HISTORY 1. Dyslipidemia. 2. COPD. 3. Smoking history. PAST SURGICAL HISTORY 1. Cholecystectomy. 2. . 3. Hernia repair. MEDICATIONS Home medications: 1. Simvastatin 20 mg p.o. daily. 2. Protonix 20 mg p.o. daily. 3. Aspirin 81 mg p.o. daily. 4. Lorazepam 0.5 mg p.o. q.8h. p.r.n. anxiety. ALLERGIES PENICILLIN-G FAMILY HISTORY Paternal family medical history significant for multiple MIs, first been in the 40s as well as maternal family history with premature coronary artery disease per patient. SOCIAL HISTORY She is a current smoker. She denies alcohol abuse or illicit drug use. PHYSICAL EXAMINATION VITAL SIGNS: Temperature 97.5, respiratory rate 16, heart rate 51, blood pressure 102/61. O2 sat 95% on room air. GENERAL: She is awake, alert, oriented x3, in no acute distress. NECK: No JVD. No carotid bruits. HEART: Regular rate and rhythm. No murmurs, rubs or gallops. LUNGS: Clear to auscultation bilaterally. No wheezes, rhonchi or rales. ABDOMEN: Obese. Positive bowel sounds. Soft, nontender, nondistended. EXTREMITIES: No cyanosis or edema. Pulses throughout. LABORATORY CBC: Hemoglobin 13, hematocrit 40, platelet count 262. INR 0.9. Sodium 137, potassium 4.0, BUN 12, creatinine 0.7. Troponin less than 0.02 x3. AST 56, ALT 116, alkaline phosphatase 147. Triglycerides 274, cholesterol 227, LDL cholesterol 132. TSH 3.1. Toxicology positive for cannabinoids as well as opiates. EKG sinus rhythm with no ST changes. IMAGING Chest x-ray: Left basilar atelectasis. ASSESSMENT 46-year-old female with cardiac risk factors, hypertension, smoking and obesity , who presented to the emergency department with atypical chest discomfort. She remains afebrile and hemodynamically stable. She had a recent ischemic work -up that is unremarkable for ischemia or blockages in the heart arteries. She also had a left heart cath done 4 years ago which is also unremarkable. Troponins and EKG are unremarkable. The chest pain is most likely musculoskeletal in nature, thus I would treat as such. Also I would treat her history of GERD. An echo has been ordered and pending results. RECOMMENDATIONS 1. Await 2-D echocardiogram results. 2. Continue aggressive management for primary prevention of CAD with smoking cessation, continued aspirin and statin. 3. Encourage ambulation. 4. If echocardiogram is unremarkable she can follow-up with cardiology as an outpatient upon discharge Opal Kraus MD TELETYPEWRITER OPERATOR/BT /8:52 AM /9:12 AM [place]
--- NOTE | 2017-01-20 15:23 | HHI.PR ---
Subjective Remarks Ms. Meza is a 46-year-old female patient with a known medical history of anxiety, dyslipidemia, COPD and tobacco history for presented to the ED with complaints of chest pain. 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 She states that this pain today started while working around 1000, is located in her midsternal chest , squeezing in nature, intermittent lasting anywhere between minutes to hours. She does state she experiences this type of pain several times a day. Denies any radiation. States that resting helps ease the pain but pain never completely subsides. Does admit to associated nausea, vomiting, dyspnea and shortness of breath with each episode. Denies any aggravating or relieving factors. Pain reproducible to palpation. Denies any recent trauma to chest or pulling any muscles. Patient does admit to a [id number] smoking history and has recently quit 1 month ago. Patient states earlier this month she was admitted to the chest pain center here at [place] and performed a chemical stress test which was unremarkable at the time. Last cardiac catheterization was 4 years ago and at that time, per patient, it was unremarkable. 01/20: Seen in her bedroom in the presence of oil processing technician, awaiting final Echocardiogram result for discharge as per hardwood flooring specialist she had already full workup she will need to improve her management for CAD and stop smoking, stop abusing substances at this time positive for marijuana, encourage ambulation, if Echo okay will discharge by Cardiology, NO Nausea, vomit or diarrhea and no chest pain. Objective Vital Signs Date Time Temp Pulse Resp B/P (MAP) Pulse Ox O2 Delivery O2 Flow Rate FiO2 01/20/17 12:40 98.4 63 16 104/71 (82) 96 01/20/17 07:35 97.5 51 16 102/61 (75) 95 01/20/17 06:03 98.1 52 18 105/59 (74) 97 01/20/17 00:10 98.4 62 18 109/63 (78) 98 01/19/17 23:41 66 01/19/17 19:27 70 16 102/61 (75) 96 Room Air 01/19/17 18:17 64 16 102/60 (74) 95 Room Air 01/19/17 17:45 76 22 98/56 (70) 100 Room Air 01/19/17 16:45 78 18 119/54 (75) 99 Room Air Result Diagram: 01/20/17 0434 01/20/17 0434 Procedures None Other Results Laboratory Tests Test 01/19/17 12:35 01/19/17 18:05 01/19/17 21:14 01/20/17 00:24 Prothrombin Time 10.2 SEC Prothromb Time International Ratio 0.9 RATIO Activated Partial Thromboplast Time 25.2 SEC Blood Urea Nitrogen 11 MG/DL Creatinine 0.96 MG/DL Random Glucose 136 MG/DL Total Protein 7.5 GM/DL Albumin 3.6 GM/DL Calcium Level 8.8 MG/DL Alkaline Phosphatase 147 U/L Aspartate Amino Transf (AST/SGOT) 56 U/L Alanine Aminotransferase (ALT/SGPT) 116 U/L Total Bilirubin 0.9 MG/DL Sodium Level 133 MEQ/L Potassium Level 4.0 MEQ/L Chloride Level 103 MEQ/L Carbon Dioxide Level 22.5 MEQ/L Lipase 120 U/L Urine Color YELLOW Urine Turbidity HAZY Urine pH 6.0 Urine Specific [place] 1.022 Urine Protein TRACE mg/dL Urine Glucose (UA) NEG mg/dL Urine Ketones NEG mg/dL Urine Occult Blood MOD Urine Nitrite NEG Urine Bilirubin NEG Urine Urobilinogen LESS THAN 2.0 MG/DL Urine Leukocyte Esterase NEG Urine RBC 24 /hpf Urine WBC 4 /hpf Urine Squamous Epithelial Cells 34 /hpf Urine Bacteria RARE /hpf Urine Hyaline Casts 5 /lpf Urine Mucus FEW /lpf Microscopic Urinalysis Comment CULT NOT INDICATED Urine Opiates Screen POS Urine Barbiturates Screen NEG Urine Amphetamines Screen NEG Urine Benzodiazepines Screen NEG Urine Cocaine Screen NEG Urine Cannabinoids Screen POS Hepatitis A IgM Antibody NEGATIVE Hepatitis B Surface Antigen NEGATIVE Hepatitis B Core IgM Antibody NEGATIVE Hepatitis C Antibody REACTIVE Total Creatine Kinase 41 U/L Troponin I LESS THAN 0.02 NG/ML Triglycerides Level 274 MG/DL Cholesterol Level 227 MG/DL LDL Cholesterol 132 MG/DL HDL Cholesterol 40.6 MG/DL Cholesterol/HDL Ratio 5.59 RATIO Vitamin B12 Level 492 PG/ML Folate 11.0 NG/ML Free Thyroxine 0.98 NG/DL Thyroid Stimulating Hormone 3rd Gen 3.170 uIU/ML Test 01/20/17 04:34 White Blood Count 8.5 TH/MM3 Red Blood Count 4.47 MIL/MM3 Hemoglobin 13.2 GM/DL Hematocrit 40.9 % Mean Corpuscular Volume 91.5 FL Mean Corpuscular Hemoglobin 29.6 PG Mean Corpuscular Hemoglobin Concent 32.4 % Red Cell Distribution Width 15.2 % Platelet Count 262 TH/MM3 Mean Platelet Volume 8.0 FL Neutrophils (%) (Auto) 55.3 % Lymphocytes (%) (Auto) 33.6 % Monocytes (%) (Auto) 8.3 % Eosinophils (%) (Auto) 2.4 % Basophils (%) (Auto) 0.4 % Neutrophils # (Auto) 4.7 TH/MM3 Lymphocytes # (Auto) 2.9 TH/MM3 Monocytes # (Auto) 0.7 TH/MM3 Eosinophils # (Auto) 0.2 TH/MM3 Basophils # (Auto) 0.0 TH/MM3 CBC Comment DIFF FINAL Differential Comment Blood Urea Nitrogen 12 MG/DL Creatinine 0.70 MG/DL Random Glucose 95 MG/DL Calcium Level 8.4 MG/DL Sodium Level 137 MEQ/L Potassium Level 4.0 MEQ/L Chloride Level 105 MEQ/L Carbon Dioxide Level 25.3 MEQ/L Anion Gap 7 MEQ/L Estimat Glomerular Filtration Rate 89 ML/MIN Objective Remarks GENERAL: Well-nourished, well-developed disheveled female patient, with complaint of current chest pain. SKIN: No rashes, ecchymoses or lesions. Warm and dry. HEAD: Atraumatic. Normocephalic. No temporal or scalp tenderness.Pupils equal round and reactive. Extraocular motions intact. No scleral icterus. No injection or drainage. Nose without bleeding. Airway patent. NECK: Trachea midline. No JVD or lymphadenopathy. Supple. CARDIOVASCULAR: Regular rate and rhythm. No murmur appreciated. S1 and S2 present. RESPIRATORY: Clear to auscultation. Breath sounds equal bilaterally. No wheezes , rales, or rhonchi. GASTROINTESTINAL: Abdomen soft, non-tender, nondistended. No guarding. MUSCULOSKELETAL: Extremities without clubbing, cyanosis, or edema. No joint tenderness, effusion, or edema noted. NEUROLOGICAL: Awake and alert. Cranial nerves II through XII intact. Motor and sensory grossly within normal limits. Five out of 5 muscle strength in all muscle groups. Normal speech. Medications and IVs Current Medications Medications (Trade) Dose Ordered Sig/Ashley Route Start Time Stop Time Status Last Admin (Aspirin Chew) 81 mg DAILY CHEW 01/20/17 09:00 01/20/17 08:59 (Ativan) 0.5 mg Q8HR PRN PO 01/19/17 17:00 01/20/17 09:27 (Protonix) 20 mg DAILY PO 01/20/17 09:00 01/20/17 08:59 (Pravachol) 40 mg DAILY PO 01/20/17 09:00 01/20/17 08:59 Sodium Chloride 1,000 ml @ 100 mls/hr Q10H IV 01/19/17 16:24 01/19/17 18:17 (NS Flush) 2 ml UNSCH PRN IV FLUSH 01/19/17 16:30 01/20/17 05:56 (NS Flush) 2 ml BID IV FLUSH 01/19/17 21:00 01/20/17 08:59 (Tylenol) 650 mg Q4HR PRN PO 01/19/17 20:00 01/20/17 02:05 (Zofran Inj) 4 mg Q6H PRN IVP 01/19/17 17:00 01/19/17 18:14 (Lovenox Inj) 40 mg Q24H SQ 01/19/17 18:00 01/19/17 18:16 (Narcan Inj) 0.4 mg UNSCH PRN IV 01/19/17 16:30 (Nay-Colace) 1 tab BID PO 01/19/17 21:00 (Milk Of Magnesia Liq) 30 ml Q12HR PRN PO 01/19/17 21:00 (Senokot) 17.2 mg Q12HR PRN PO 01/19/17 21:00 (Dulcolax Supp) 10 mg DAILY PRN RECTAL 01/19/17 16:30 (Lactulose Liq) 30 ml DAILY PRN PO 01/19/17 16:30 (Morphine Inj) 1 mg Q4H PRN IV PUSH 01/19/17 16:45 01/20/17 05:57 A/P Assessment and Plan Atypical chest pain suspect secondary to musculoskeletal etiology: Troponin negative. 2-D ECHO ordered and pending. Follow. Cardiology consulted, appreciate input. Continue cardiac telemetry. Control pain, Morphine IV PRN per pain scale. Nausea and vomiting: Zofran available PRN. improved today tolerating diet. Transaminase: probable GERD continue management. Chronic obstructive pulmonary disease: CXR reviewed showing left basilar atelectasis. Stable at this time. Dyslipidemia, chronic: Continue home Pravastatin. Anxiety: Continue home Lorazepam. History of tobacco abuse: Continue to encourage cessation. Nicotine patch offered, patient refused. GERD/GI Prophylaxis: Protonix DVT Prophylaxis: SCDs/Lovenox Okay to discharge home once Echocardiogram read by Cardiology and clear for discharge. Code Status Full code Discussed Condition With Patient and Forestry Worker, all questions answered to the best of my abilities. Discharge Planning expected to be later today. Jesus Penny MD Jan 20, 2017 15:23
[2017-01-20] MEDS: SODIUM CHLOR 0.9% 1000 ML INJ 1,000 ML IV SCH (15:59)
[2017-01-20 16:16] LABS: HEMOGLOBIN A1a 1.1 %; HEMOGLOBIN Ao 84.8 %; HEMOGLOBIN F 0.9 %; HEMOGLOBIN LA1C 1.9 %; HEMOGLOBIN P3 3.6 %
--- NOTE | 2017-01-20 18:04 | ECHRPT ---
Indication: chest pain CONCLUSIONS The left ventricular systolic function is hyperdynamic with an estimated ejection fraction in the ra nge of 65- 70%. No regional wall motion abnormalities are present. Wall thickness is normal. Normal left ventricular size. No mitral valve regurgitation. No aortic valve regurgitation. No aortic valve stenosis. There is trace tricuspid valve regurgitation. The pulmonary valve is not well visualized. BP: / HR: Rhythm: MEASUREMENTS (Male / Female) Normal Values Technical Quality:Good 2D ECHO LV Diastolic Diameter PLAX 5.2 cm 4.2 - 5.9 / 3.9 - 5.3 cm LV Systolic Diameter PLAX 3.5 cm IVS Diastolic Thickness 0.8 cm 0.6 - 1.0 / 0.6 - 0.9 cm LVPW Diastolic Thickness 0.8 cm 0.6 - 1.0 / 0.6 - 0.9 cm LV Relative Wall Thickness 0.3 RV Internal Dim ED PLAX 3.1 cm M-MODE Aortic Root Diameter MM 2.7 cm LA Systolic Diameter MM 3.6 cm LA Ao Ratio MM 1.3 AV Cusp Separation MM 2.0 cm DOPPLER Mitral E Point Velocity 52.3 cm/s Mitral A Point Velocity 47.9 cm/s Mitral E to A Ratio 1.1 LV E' Lateral Velocity 7.8 cm/s Mitral E to LV E' Lateral Ratio 6.7 LV E' Septal Velocity 10.2 cm/s Mitral E to LV E' Septal Ratio 5.1 TR Peak Velocity 181.0 cm/s TR Peak Gradient 13.1 mmHg FINDINGS LEFT VENTRICLE The left ventricular systolic function is hyperdynamic with an estimated ejection fraction in the ra nge of 65- 70%. No regional wall motion abnormalities are present. Wall thickness is normal. Normal left ventricular size. RIGHT VENTRICLE Normal right ventricular size and systolic function. LEFT ATRIUM The left atrial size is normal. RIGHT ATRIUM The right atrial size is normal. ATRIAL SEPTUM Normal atrial septal thickness without atrial level shunting by limited color doppler interrogation. AORTA The aortic root and proximal ascending aorta are normal in size on limited imaging. MITRAL VALVE Structurally normal mitral valve. No mitral valve regurgitation. AORTIC VALVE No aortic valve regurgitation. No aortic valve stenosis. TRICUSPID VALVE Structurally normal tricuspid valve. There is trace tricuspid valve regurgitation. PULMONARY VALVE The pulmonary valve is not well visualized. VESSELS The inferior vena cava is normal in size. PERICARDIUM No pericardial effusion. León Stringer MD (Electronically Signed) Final Date:20 January 2017 18:03
[2017-01-20] MEDS: ENOXAPARIN SODIUM 40 MG/0.4 ML SYRINGE SQ SCH (18:20)
[2017-01-21] VITALS: PULSE 45
[2017-01-21 00:37] VITALS: BP 103/62; PULSE 52; RESP 20; TEMP 97.8; O2SAT 96
[2017-01-21] MEDS: SODIUM CHLOR 0.9% 1000 ML INJ 1,000 ML IV SCH (03:32)
[2017-01-21 04:01] VITALS: PULSE 52
[2017-01-21 04:24] VITALS: BP 109/65; RESP 18; TEMP 97.9; O2SAT 97
[2017-01-21] MEDS ORDERED: LIPI20TA PO (08:36)
--- NOTE | 2017-01-21 08:38 | HHI.PR ---
Subjective Remarks Follow up for chest pain. Patient is doing well. No acute concerns. Denies any CP, SOB, fever, chills. Objective Vitals Vital Signs Date Time Temp Pulse Resp B/P (MAP) Pulse Ox O2 Delivery O2 Flow Rate FiO2 01/21/17 04:24 97.9 18 109/65 (80) 97 01/21/17 04:01 52 01/21/17 00:37 97.8 52 20 103/62 (76) 96 01/21/17 00:00 45 01/20/17 20:07 61 01/20/17 17:50 98.1 54 16 99/61 (74) 96 01/20/17 16:25 57 01/20/17 12:52 59 01/20/17 12:40 98.4 63 16 104/71 (82) 96 I/O 01/20/17 01/20/17 01/20/17 01/21/17 01/21/17 01/21/17 06:59 14:59 22:59 06:59 14:59 22:59 Intake Total 1920 ml Balance 1920 ml Intake Oral 720 ml IV Total 1200 ml # Voids 5 Result Diagram: 01/20/17 0434 01/20/17 0434 A/P Problem List: (1) Hyperlipidemia ICD Code: E78.5 - Hyperlipidemia, unspecified Status: Acute (2) Tobacco abuse ICD Code: Z72.0 - Tobacco use Status: Acute (3) Chest pain ICD Code: R07.9 - Chest pain, unspecified Status: Acute Assessment and Plan Ms. Meza is a 46-year-old female patient with a known medical history of anxiety, dyslipidemia, COPD and tobacco history for presented to the ED with complaints of chest pain. Patient has had similar complaints in the past and just recently was admitted to the chest pain center earlier this month. Does state she has a history of CAD with cardiac catheterization performed 4 years ago in [place] requiring no intervention or stent placement. Does admit to a tobacco history and hyperlipidemia controlled on mediation. VSS. Slight hyponatremia noted. Troponin negative. Elevated liver enzymes. CXR showing atelectasis. Atypical chest pain suspect secondary to musculoskeletal etiology: Troponin negative. 2-D ECHO ordered and pending. Follow. Cardiology consulted, appreciate input. Continue cardiac telemetry. Control pain, Morphine IV PRN per pain scale. Nausea and vomiting: Zofran available PRN. Will hydrate, NS at 100 ml/hr. Encourage PO intake as tolerated. Transaminase: No baseline liver labs found in EMR. US abdomen liver ordered and pending. Hepatitis profile and Lipase ordered. Follow. Patient refuses any alcohol consumption. Chronic obstructive pulmonary disease: CXR reviewed showing left basilar atelectasis. Stable at this time. Dyslipidemia, chronic: Continue home Pravastatin. Anxiety: Continue home Lorazepam. History of tobacco abuse: Continue to encourage cessation. Nicotine patch offered, patient refused. GERD/GI Prophylaxis: Protonix DVT Prophylaxis: SCDs/Lovenox Discharge patient to home Condition on discharge: Improved Heart healthy Diet as tolerated Ad Gela activity Rx written: - Stop Simvastatin - Start Lipitor 20mg QHS - Continue other home meds. Follow-up with primary care physician within two weeks. Problem Qualifiers (1) Chest pain: Qualified Codes: R07.9 - Chest pain, unspecified Joseph Stark DO Jan 21, 2017 08:37
[2017-01-21 08:59] VITALS: BP 92/57; PULSE 55; RESP 16; TEMP 97.7; O2SAT 96
[2017-01-21] MEDS: PRAVASTATIN SOD 40 MG TAB PO SCH (10:33)
[2017-01-21] MEDS: LORazepam 0.5 MG TAB PO PRN (10:34)
[2017-01-21] MEDS: PANTOPRAZOLE SOD 20 MG DELAYED RELEASE TAB PO SCH (10:34)
[2017-01-21] MEDS: DOCUSATE SODIUM 50 MG/SENNA 8.6 MG TAB PO SCH (10:34)
[2017-01-21] MEDS: ASPIRIN 81 MG CHEW TAB CHEW SCH (10:34)
[2017-01-21] MEDS: SODIUM CHLORIDE 0.9% FLUSH 10 ML FLUSH IV FLUSH SCH (10:34)
[2017-01-21 13:08] VITALS: PULSE 44
== END 2017-01-21 13:53 | disposition home or self-care (01) ==
LOC: NEPC 12:10 → NEDA 16:37 → NEPFCDU 19:35
PROVIDERS: ADMIT Hospitalist; ATTEND Hospitalist
DX: R07.9 Chest pain, unspecified (principal); R74.8 Abnormal levels of other serum enzymes; E78.5 Hyperlipidemia, unspecified; E66.9 Obesity, unspecified; I10 Essential (primary) hypertension; F41.9 Anxiety disorder, unspecified; J44.9 Chronic obstructive pulmonary disease, unspecified; J98.11 Atelectasis; K21.9 Gastro-esophageal reflux disease without esophagitis; K75.9 Inflammatory liver disease, unspecified; F17.200 Nicotine dependence, unspecified, uncomplicated; Z82.49 Family history of ischemic heart disease and other diseases of the circulatory system
CPT/HCPCS: 71020; 76705; 80048; 80053; 80061; 80074; 80307; 81001; 82550; 82607; 82746; 83036; 83690; 84439; 84443; 84484; 85025; 85610; 85730; 93005; 93306; 96361; 96372; 96374; 96375; 96376; 99285; G0378; J1650; J2270; J2405; J7030